=== PATIENT | male | born 1970 | race American Indian/Alaskan Native ===

== ENCOUNTER 2017-02-21 00:37 | Inpatient (IN) | payer MEDICAID ==
[2017-02-21 00:38] VITALS: BMI 30.2
[2017-02-21 00:42] VITALS: O2SAT 96
--- NOTE | 2017-02-21 00:54 | ED PDOC ---
Psych Transfer Clearance - Clearance Statement Clearance Statement: Reviewed vital signs, lab results and transfer papers. Patient clinically stable for psychiatric admission.
[2017-02-21] MEDS ORDERED: DiphenhydrAMINE 50 mg/ml Inj IM PRN (02:09)
[2017-02-21] MEDS ORDERED: Magnesium Hydroxide Susp 30 ml UD PO PRN (02:09)
[2017-02-21] MEDS ORDERED: Alum-Mag Hydrox-Simethicone Susp (30 mL) PO PRN (02:09)
[2017-02-21] MEDS: Insulin Lispro (humaLOG) 100 Units/ml Inj SC SCH ×4 (08:21→22:14)
[2017-02-21] MEDS: Albuterol-Ipratrop 3 mg / 0.5 (3 ml) UD IH SCH ×5 (08:28→22:12)
[2017-02-21 08:45] LABS: THYROID STIMULATING HORMONE 1.07 mIU/ML (0.46-4.68)
[2017-02-21] MEDS: Pantoprazole 40 mg EC Tab PO SCH (08:58)
--- NOTE | 2017-02-21 10:42 | CP.PCM.CON ---
History of Present Illness - History of Present Illness History of Present Illness: Hospitalist Consult H&P (Patient was seen and examined at 10:15 AM 02/21/17 320- 2 with Psychiatry Nurse) 47 year old male who was transferred from [facility] to [facility] In-Patient Psychiatry Unit for further treatment of depression, auditory hallucinations, and Suicide Ideation. Currently upon FULL ROS there is NO chest pain, NO palpitations, NO SOB/Cough/ Wheezing,NO dysphagia/odynophagia, NO abdominal pain, NO n/v/d/c, NO black/ bloody stools, NO burning/pain with urination, NO lightheadedness/dizziness, NO paresthesias, NO edema, NO new changes in vision/eye pain, NO new changes in hearing/ear pain PMHx: Acute Respiratory Failure (Jul 2016), COPD, DM 2, HTN, Polysubstance Abuse , Suicide Attempt via Overdose (Jul 2016), Schizoaffective Disorder Depressive Type PSHx: Denies ALL: Denies Meds: Please see list Social Hx: Homeless, (+) Heroin, (+) Tobacco 1 pack/day, (+) Alcohol 1 pint vodka daily Physical Exam: HEENT: NCA, EOMI, PERRLA, NO pharyngeal erythema/exudate, NO thyromegaly, NO cervical/supraclavicular/submandibular lymphadenopathy, Oral Mucosa and Nasal Turbinates are dry Cardio: NS1 and NS2, NO M/R/G Resp: CTA B/L, NO R/R/W GI: BSx4, Soft, NT,ND, NO HSM, NO guarding/rebound tenderness Ext: Pulses are strong and equal, NO edema, Capillary Refill is 2 seconds Neuro: CN II through XII are grossly intact Assessment and Plan: 1). Hx DM 2 Metformin 1,000 mg PO 2x/day Lispro ISS with Accuchecks 2). Hx HTN Norvasc 10 mg PO 1x/day 3). Hyperlipidemia Total Cholesterol 228, Triglycerides 186, HDL 45, and LDL 163 Considering the DM 2 and that the LDL goal for a diabetic should be 100, Atorvastatin 10 mg PO QHS has been ordered 4). COPD Duoneb Q6H PRN SOB Advair 250/50 mcg PO INH Q12H Upon discharge a cheaper alternative would be Breo Ellipta 100/25 mcg PO INH 1x/ day 5). Shizoaffective Disorder Depressive Type Treatment as per Psychiatry 6). Polysubstance Abuse Treatment as per Psychiatry 7). Suicide Ideation Treatment as per Psychiatry Gerry Humphrey D.O. Past Patient History - Past Medical History & Family History Past Medical History?: Yes - Past Social History Smoking Status: Heavy Smoker > 10 Cigarettes Daily - CARDIAC Hx Hypertension: Yes - PULMONARY Hx Chronic Obstructive Pulmonary Disease (COPD): Yes - NEUROLOGICAL HX Cerebrovascular Accident: No Hx Seizures: No - HEENT Hx HEENT Problems: No Other/Comment: uses glasses - RENAL Hx Chronic Kidney Disease: No - ENDOCRINE/METABOLIC Hx Endocrine Disorders: Yes Hx Diabetes Mellitus Type 2: Yes - HEMATOLOGICAL/ONCOLOGICAL Hx Cancer: No Hx Human Immunodeficiency Virus (HIV): No Other/Comment: requested HIV test during adm interview - INTEGUMENTARY Hx Dermatological Problems: No - MUSCULOSKELETAL/RHEUMATOLOGICAL Hx Musculoskeletal Disorders: Yes Hx Arthritis: Yes Hx Falls: No - GASTROINTESTINAL Hx Gastrointestinal Disorders: No - GENITOURINARY/GYNECOLOGICAL Hx Sexually Transmitted Disorders: No - PSYCHIATRIC Hx Depression: Yes Hx Schizophrenia: Yes Hx Substance Use: Yes (last used heroin 2yrs ago) - SURGICAL HISTORY Hx Surgeries: No - ANESTHESIA Hx Anesthesia: No Meds Allergies/Adverse Reactions: Allergies Allergy/AdvReac Type Severity Reaction Status Date / Time No Known Allergies Allergy Verified 02/20/17 11:31 - Medications Medications: Current Medications Acetaminophen (Tylenol 325mg Tab) 650 mg PO Q4 PRN PRN Reason: Pain, moderate (4-7) Al Hydrox/Mg Hydrox/Simethicone (Maalox Plus 30 Ml) 30 ml PO Q4 PRN PRN Reason: Dyspepsia Albuterol/Ipratropium (Duoneb 3 Mg/0.5 Mg (3 Ml) Ud) 3 ml IH QID [facility] Last Admin: 02/21/17 08:28 Dose: Not Given Amlodipine Besylate (Norvasc) 10 mg PO DAILY [facility] Last Admin: 02/21/17 09:01 Dose: 10 mg Clonidine HCl (Catapres) 0.2 mg PO BID [facility] Last Admin: 02/21/17 08:58 Dose: 0.2 mg Diphenhydramine HCl (Benadryl) 50 mg IM Q6 PRN PRN Reason: Extrapyramidal S/S Unable PO Diphenhydramine HCl (Benadryl) 50 mg PO Q6 PRN PRN Reason: Extrapyramidal Symptoms Diphenhydramine HCl (Benadryl) 50 mg PO HS PRN PRN Reason: Sleep Haloperidol (Haldol) 5 mg PO Q4 PRN PRN Reason: Agitation Haloperidol Lactate (Haldol) 5 mg IM Q4 PRN PRN Reason: Agitation, Unable to Take PO Insulin Human Lispro (Humalog) 0 units SC ACHS [facility] PRN Reason: Protocol Last Admin: 02/21/17 08:21 Dose: 2 u Lorazepam (Ativan) 2 mg IM Q4 PRN PRN Reason: Anxiety/Agitation,Unable PO Lorazepam (Ativan) 2 mg PO Q4 PRN PRN Reason: Anxiety/Agitation Magnesium Hydroxide (Milk Of Magnesia) 30 ml PO HS PRN PRN Reason: Constipation Metformin HCl (Glucophage) 1,000 mg PO BID [facility] Last Admin: 02/21/17 08:58 Dose: 1,000 mg Nicotine (Nicoderm Cq) 1 patch TD DAILY [facility] Last Admin: 02/21/17 08:59 Dose: Not Given Pantoprazole Sodium (Protonix Ec Tab) 40 mg PO DAILY [facility] Last Admin: 02/21/17 08:58 Dose: 40 mg Quetiapine Fumarate (Seroquel) 100 mg PO [facility] Quetiapine Fumarate (Seroquel) 100 mg PO DAILY [facility] Last Admin: 02/21/17 09:00 Dose: 100 mg Results - Vital Signs Recent Vital Signs: Last Vital Signs Temp 97.2 F L 02/21/17 01:30 Pulse 80 02/21/17 09:01 Resp 20 02/21/17 01:56 BP 130/90 02/21/17 09:01 Pulse Ox 96 02/21/17 00:39 - Labs Labs: Laboratory Results - last 24 hr 02/21/17 06:15 Triglycerides 186 H Cholesterol 228 H LDL Cholesterol Direct 163 H HDL Cholesterol 45 Thyroxine (T4) 6.00 TSH 3rd Generation 1.07
[2017-02-21] MEDS ORDERED: METHADONE PO ONE (10:51)
--- NOTE | 2017-02-21 11:55 | PCM.PSYCH ---
Initial Psychiatric Evaluation - Initial Psychiatric Evaluation Type of Admission: Voluntary Legal Status: Capacity Chief Complaint (in patient's own words): i need my methadone Patient's Reaction to Hospitalization: irritable History of Present Illness and Precipitating Events: 47 yo male with history of opioid dependence and schizoaffective disorder. he attends a methadone clinic in [facility]. this is the second time since july showing up in [place]/ seeking hospitalization. he reported to staff at [facility] that he wanted to walk infront of traffic or a bus or a train to kill himself. he reported non-adherence with medications. he stated voices were bothering him. today he is focused on receiving the methadone he brought with him from his clinic. he is irritable and demanding. he reports he will be fine once he gets his methadone. he denies any thoughts to harm self now. Current Medications: Active Medications Generic Name Dose Route Start Last Admin Trade Name Freq PRN Reason Stop Dose Admin Acetaminophen 650 mg 02/21/17 02:09 Tylenol 325mg Tab PO Q4 PRN Pain, moderate (4-7) Al Hydrox/Mg Hydrox/Simethicone 30 ml 02/21/17 02:09 Maalox Plus 30 Ml PO Q4 PRN Dyspepsia Albuterol/Ipratropium 3 ml 02/21/17 09:00 02/21/17 08:28 Duoneb 3 Mg/0.5 Mg (3 Ml) Ud IH Not Given QID [facility]I Amlodipine Besylate 10 mg 02/21/17 09:00 02/21/17 09:01 Norvasc PO 10 mg DAILY EDI Administration Atorvastatin Calcium 10 mg 02/21/17 22:00 Lipitor PO HS EDI Clonidine HCl 0.2 mg 02/21/17 09:00 02/21/17 08:58 Catapres PO 0.2 mg BID EDI Administration Diphenhydramine HCl 50 mg 02/21/17 02:09 Benadryl IM Q6 PRN Extrapyramidal S/S Unable PO Diphenhydramine HCl 50 mg 02/21/17 02:09 Benadryl PO Q6 PRN Extrapyramidal Symptoms Diphenhydramine HCl 50 mg 02/21/17 02:11 Benadryl PO HS PRN Sleep Haloperidol 5 mg 02/21/17 02:09 Haldol PO Q4 PRN Agitation Haloperidol Lactate 5 mg 02/21/17 02:09 Haldol IM Q4 PRN Agitation, Unable to Take PO Insulin Human Lispro 0 units 02/21/17 07:30 02/21/17 08:21 Humalog SC 2 u ACHS EDI Administration Protocol Lorazepam 2 mg 02/21/17 02:09 Ativan IM Q4 PRN Anxiety/Agitation,Unable PO Lorazepam 2 mg 02/21/17 02:09 Ativan PO Q4 PRN Anxiety/Agitation Magnesium Hydroxide 30 ml 02/21/17 02:09 Milk Of Magnesia PO HS PRN Constipation Metformin HCl 1,000 mg 02/21/17 09:00 02/21/17 08:58 Glucophage PO 1,000 mg BID EDI Administration Nicotine 1 patch 02/21/17 09:00 02/21/17 08:59 Nicoderm Cq TD Not Given DAILY EDI Pantoprazole Sodium 40 mg 02/21/17 09:00 02/21/17 08:58 Protonix Ec Tab PO 40 mg DAILY EDI Administration Quetiapine Fumarate 100 mg 02/21/17 22:00 Seroquel PO HS EDI Quetiapine Fumarate 100 mg 02/21/17 09:00 02/21/17 09:00 Seroquel PO 100 mg DAILY EDI Administration Fluticasone/Salmeterol 1 puff 02/21/17 21:00 Advair Diskus 250/50 IH Q12 EDI Past Psychiatric History - Past Psychiatric History Previous Treatment History: Inpatient Prior Professional Help: seen in [facility], was hospitalized her in jul 2016 History of Abuse: denies History of ETOH/Drug Use: states he has been using benzos, history of heroin dependence on methadone. History of Family Illness: denies Pertinent Medical Hx (Current Medical&Sleep Prob, Allergies): Allergies Allergy/AdvReac Type Severity Reaction Status Date / Time No Known Allergies Allergy Verified 02/20/17 11:31 Methadone 100 mg PO DAILY 07/16/16 Albuterol/Ipratropium [Duoneb 3 mg/0.5 mg (3 ml) UD] 3 ml IH QID 07/18/16 Folic Acid 1 mg PO DAILY 07/18/16 Insulin Lispro [humALOG] See Protocol SQ ACHS 07/18/16 Metformin HCl [Glucophage] 1,000 mg PO BID 07/18/16 Pantoprazole Sodium [Protonix] 40 mg PO DAILY 07/18/16 Prednisone [Deltasone] 40 mg PO DAILY 07/18/16 Thiamine [Vitamin B1 Tab] 100 mg PO DAILY 07/18/16 amLODIPine [Norvasc] 10 mg PO DAILY 07/18/16 cloNIDine [Catapres] 0.2 mg PO BID 07/18/16 levoFLOXacin 500 mg in D5W [Levaquin 500MG] 500 mg IVPB DAILY 07/18/16 Benztropine [Cogentin] 0.5 mg PO BID #60 tab 07/21/16 Citalopram [celeXA] 10 mg PO HS #30 tab 07/21/16 Haloperidol [Haldol] 5 mg PO BID #60 tab 07/21/16 levoFLOXacin [Levaquin] 500 mg PO DAILY #0 tab 07/21/16 Review of Systems - Psychiatric Psychiatric: As Per [facility] Mental Status Examination - Personal Presentation Personal Presentation: Looks stated age - Affect Affect: Blunted - Motor Activity Motor Activity: Calm - Reliability in Providing Information Reliability in Providing Information: Poor, due to altered mood (irritable) - Speech Speech: Other (brief answers, angry tone) - Mood Mood: Depressed - Formal Thought Process Formal Thought Process: Hallucinations (was reporting hallucinations prior to admission) - Hallucinations/Delusions Hallucinations: Auditory - Obsessions/Compulsions Obsessions: No Compulsions: No - Cognitive Functions Orientation: Person, Place, Situation, Time Sensorium: Alert Attention/Concentration: Attentive Abstract Thinking: [place] Estimate of Intelligence: Average Judgement: Intact, as evidence by: Insight regarding need for hospitalization Memory: Recent intact, as evidence by: Ability to recall events of the day, Remote intact, as evidenced by: Abilit to recall sig. life events - Risk Risk: Suicidal (at this time denies any thoughts of harming self. ), Withdrawal - Strength & Assets Inventory Strength & Assets Inventory: Intelligence - Limitations Limitations: Other (housing) DSM 5 DX - DSM 5 DSM 5 Diagnosis: schizoaffective disorder polysubstance abuse with opioid dependence on replacement - Recommended/Plan of Treatment Treatment Recommendations and Plan of Treatment: admit to [facility] for safety and observation gather collateral information provide supportive therapy adjust medications- restart previous meds hospitalist consult disposition planning Projected ELOS: 3 days Prognosis: fair - Smoking Cessation Smoking Cessation Initiated: Yes
--- NOTE | 2017-02-21 14:56 | CARD ---
APPROVED REPORT EKG Measurement Heart [id number] [place] [id number] <Conclusion> Normal sinus rhythm Early repolarization Normal ECG
[2017-02-21] MEDS: Fluticasone-Salmeterol 250-50mcg Diskus IH SCH (21:13)
[2017-02-22] MEDS: Insulin Lispro (humaLOG) 100 Units/ml Inj SC SCH ×4 (08:39→21:32)
[2017-02-22] MEDS: Fluticasone-Salmeterol 250-50mcg Diskus IH SCH ×2 (10:51→21:47)
[2017-02-22] MEDS: Pantoprazole 40 mg EC Tab PO SCH (10:52)
[2017-02-22] MEDS: Albuterol-Ipratrop 3 mg / 0.5 (3 ml) UD IH SCH ×3 (10:57→17:25)
--- NOTE | 2017-02-22 12:01 | PCM.PYCHPN ---
Psychiatric Progress Note - Psychiatric Progress Note Patient seen today, length of contact: in treatment team Patient Chief Complaint: i feel depressed Problems Identified/Issues Discussed: pt states he hears voices and feels depressed. states he has suicidal thoughts, but feels safe in the hospital. states he is thinking to go back to a rehab program in [place]. Medical Problems: diabetes, seen by hospitalist Medication Change: No Medical Record Reviewed: Yes Mental Status Examination - Cognitive Function Orientation: Person, Place, Situation, Time Memory: Intact Attention: WNL Concentration: WNL Association: [facility] Fund of Knowledge: [facility] Decription of patient's judgement and insights: fair - Mood Mood: Depressed - Affect Affect: Blunted - Formal Thought Process Formal Thought Process: Hallucinations (reports he still hears voices) - Suicidal Ideation Suicidal Ideation: Yes Plan: denies plan and feels safe in hospital - Homicidal Ideation Homicidal Ideation: No Goal/Treatment Plan - Goal/Treatment Plan Need for Continued Stay: Remain at risks for inpatient hospitalization, Discharge may exacerbated symptoms Progress Toward Problem(s) and Goals/Treatment Plan: schizoaffective disorder opioid dependence continue current treatment t/c endocrinology consult will titrate up seroquel tomorrow pt's methadone has been confirmed by his clinic and will be restarted Estimated Date of D/C: 02/26/17
[2017-02-23] MEDS: Albuterol-Ipratrop 3 mg / 0.5 (3 ml) UD IH SCH ×5 (06:15→21:32)
[2017-02-23] MEDS: Insulin Lispro (humaLOG) 100 Units/ml Inj SC SCH ×4 (06:32→21:31)
[2017-02-23] MEDS: Pantoprazole 40 mg EC Tab PO SCH (09:13)
[2017-02-23] MEDS: Fluticasone-Salmeterol 250-50mcg Diskus IH SCH ×2 (09:14→21:34)
--- NOTE | 2017-02-23 13:12 | PCM.PYCHPN ---
Psychiatric Progress Note - Psychiatric Progress Note Patient seen today, length of contact: in treatment team Patient Chief Complaint: i m getting back there doc Problems Identified/Issues Discussed: pt more visible in the mile[place]. he is socializing with peers. states voices are decreased and tolerable. he denies any withdrawal symptoms. much more alert and active Medical Problems: diabetes, seen by hospitalist Medication Change: No Medical Record Reviewed: Yes Mental Status Examination - Cognitive Function Orientation: Person, Place, Situation, Time Memory: Intact Attention: WNL Concentration: WNL Association: WN Fund of Knowledge: [facility] Decription of patient's judgement and insights: fair - Mood Mood: Depressed - Affect Affect: Blunted - Formal Thought Process Formal Thought Process: Hallucinations (reports voices are improved) - Suicidal Ideation Suicidal Ideation: No Plan: denies any suicidal thoughts today - Homicidal Ideation Homicidal Ideation: No Goal/Treatment Plan - Goal/Treatment Plan Need for Continued Stay: Remain at risks for inpatient hospitalization, Discharge may exacerbated symptoms Progress Toward Problem(s) and Goals/Treatment Plan: schizoaffective disorder opioid dependence continue current treatment pt feels seroquel is at the dose he would like currently. pt's methadone has been confirmed by his clinic disposition planning Estimated Date of D/C: 02/26/17
[2017-02-24] MEDS: Albuterol-Ipratrop 3 mg / 0.5 (3 ml) UD IH SCH ×4 (08:34→21:34)
[2017-02-24] MEDS: Insulin Lispro (humaLOG) 100 Units/ml Inj SC SCH ×4 (08:45→21:35)
[2017-02-24] MEDS: Fluticasone-Salmeterol 250-50mcg Diskus IH SCH ×2 (08:50→21:34)
[2017-02-24] MEDS: Pantoprazole 40 mg EC Tab PO SCH (08:52)
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
[2017-02-25] MEDS: Insulin Lispro (humaLOG) 100 Units/ml Inj SC SCH ×4 (08:37→22:00)
[2017-02-25] MEDS: Pantoprazole 40 mg EC Tab PO SCH (08:41)
[2017-02-25] MEDS: Albuterol-Ipratrop 3 mg / 0.5 (3 ml) UD IH SCH ×4 (08:58→21:36)
[2017-02-25] MEDS: Fluticasone-Salmeterol 250-50mcg Diskus IH SCH ×2 (08:58→21:36)
--- NOTE | 2017-02-25 11:49 | PCM.PYCHPN ---
Psychiatric Progress Note - Psychiatric Progress Note Patient seen today, length of contact: discussed with team Patient Chief Complaint: i am getting there doc Problems Identified/Issues Discussed: pt still pacing the halls. states the voices are better today. now more future oriented and agreeing to discharge wednesday and asking for his program to be notified so he won't have a lapse in his methadone. Medical Problems: diabetes, seen by hospitalist Medication Change: No ( ) Medical Record Reviewed: Yes Mental Status Examination - Cognitive Function Orientation: Person, Place, Situation, Time Memory: Intact Attention: WNL Concentration: WNL Association: WNL Fund of Knowledge: [facility] Decription of patient's judgement and insights: fair - Mood Mood: Anxious - Affect Affect: Blunted - Speech Speech: Appropriate - Formal Thought Process Formal Thought Process: Hallucinations (improved today), Paranoia, Loosening of associations Psychotic Thoughts and Behaviors: internally preoccupied - Suicidal Ideation Suicidal Ideation: No - Homicidal Ideation Homicidal Ideation: No Goal/Treatment Plan - Goal/Treatment Plan Need for Continued Stay: Remain at risks for inpatient hospitalization, Discharge may exacerbated symptoms Progress Toward Problem(s) and Goals/Treatment Plan: schizoaffective disorder opioid dependence continue current treatment will continue seroquel pt's methadone has been confirmed by his clinic disposition planning- discharge wednesday team to contact methadone clinic to inform of discharge Estimated Date of D/C: 02/26/17
[2017-02-26] MEDS: Albuterol-Ipratrop 3 mg / 0.5 (3 ml) UD IH SCH ×4 (08:30→21:03)
[2017-02-26] MEDS: Pantoprazole 40 mg EC Tab PO SCH (09:33)
[2017-02-26] MEDS: Insulin Lispro (humaLOG) 100 Units/ml Inj SC SCH ×5 (09:46→21:02)
[2017-02-26] MEDS: Fluticasone-Salmeterol 250-50mcg Diskus IH SCH ×2 (09:52→21:03)
--- NOTE | 2017-02-26 14:24 | PCM.PYCHPN ---
Psychiatric Progress Note - Psychiatric Progress Note Patient seen today, length of contact: discussed with team Patient Chief Complaint: i am getting better Problems Identified/Issues Discussed: pt reports his symptoms are improved and more tolerable. good sleep. denies medication side effects. he is anticipating discharge wednesday. Medical Problems: diabetes, seen by hospitalist Medication Change: No ( ) Medical Record Reviewed: Yes Mental Status Examination - Cognitive Function Orientation: Person, Place, Situation, Time Memory: Intact Attention: WNL Concentration: WNL Association: WNL Fund of Knowledge: WN Decription of patient's judgement and insights: fair - Mood Mood: Anxious - Affect Affect: Blunted - Speech Speech: Appropriate - Formal Thought Process Formal Thought Process: Hallucinations (improving), Paranoia, Loosening of associations Psychotic Thoughts and Behaviors: internally preoccupied - Suicidal Ideation Suicidal Ideation: No - Homicidal Ideation Homicidal Ideation: No Goal/Treatment Plan - Goal/Treatment Plan Need for Continued Stay: Remain at risks for inpatient hospitalization, Discharge may exacerbated symptoms Progress Toward Problem(s) and Goals/Treatment Plan: schizoaffective disorder opioid dependence continue current treatment will continue seroquel disposition planning- discharge wednesday team to contact methadone clinic to inform of discharge Estimated Date of D/C: 02/26/17
[2017-02-27] MEDS: Albuterol-Ipratrop 3 mg / 0.5 (3 ml) UD IH SCH ×5 (08:00→21:31)
[2017-02-27] MEDS: Pantoprazole 40 mg EC Tab PO SCH (09:36)
[2017-02-27] MEDS: Insulin Lispro (humaLOG) 100 Units/ml Inj SC SCH ×4 (09:37→21:22)
[2017-02-27] MEDS: Fluticasone-Salmeterol 250-50mcg Diskus IH SCH ×2 (09:39→21:19)
[2017-02-28] MEDS: Albuterol-Ipratrop 3 mg / 0.5 (3 ml) UD IH SCH ×5 (07:43→20:59)
[2017-02-28] MEDS: Insulin Lispro (humaLOG) 100 Units/ml Inj SC SCH ×4 (07:59→21:57)
[2017-02-28] MEDS: Fluticasone-Salmeterol 250-50mcg Diskus IH SCH ×2 (08:58→21:52)
[2017-02-28] MEDS: Pantoprazole 40 mg EC Tab PO SCH (09:00)
--- NOTE | 2017-02-28 11:02 | PCM.PYCHPN ---
Psychiatric Progress Note - Psychiatric Progress Note Patient seen today, length of contact: late note for [id number] discussed with team 35min spent Patient Chief Complaint: changes in thought anxiety feeling over whelmed Problems Identified/Issues Discussed: changes mood, feeling anxious, feeling overwhelmed Medical Problems: per chart Diagnostic Results: anxiety, irritability Medication Change: No ( ) Medical Record Reviewed: Yes Mental Status Examination - Cognitive Function Orientation: Person, Place, Situation, Time Memory: Intact Attention: WNL Concentration: WNL Association: WNL Fund of Knowledge: WN Decription of patient's judgement and insights: impaired - Mood Mood: Anxious - Affect Affect: Blunted - Speech Speech: Appropriate - Formal Thought Process Formal Thought Process: Hallucinations (improving), Paranoia, Loosening of associations - Suicidal Ideation Suicidal Ideation: No - Homicidal Ideation Homicidal Ideation: No Goal/Treatment Plan - Goal/Treatment Plan Need for Continued Stay: Remain at risks for inpatient hospitalization, Discharge may exacerbated symptoms Progress Toward Problem(s) and Goals/Treatment Plan: inpt milieu adjust med per status social science teacher working for discharge plan maintenance discharge planning in progress Estimated Date of D/C: 03/01/17 - Smoking Cessation Smoking Cessation Initiated: No Reason for not providing: deferred
[2017-02-28 16:34] VITALS: RESP 20
[2017-03-01] MEDS: Insulin Lispro (humaLOG) 100 Units/ml Inj SC SCH (08:25)
[2017-03-01] MEDS: Fluticasone-Salmeterol 250-50mcg Diskus IH SCH (08:53)
[2017-03-01] MEDS: Albuterol-Ipratrop 3 mg / 0.5 (3 ml) UD IH SCH (08:53)
[2017-03-01] MEDS: Pantoprazole 40 mg EC Tab PO SCH (08:55)
[2017-03-01 09:00] VITALS: BP 121/77; PULSE 92
[2017-03-01 10:37] VITALS: TEMP 98.1
--- NOTE | 2017-03-01 11:41 | PCM.PYCHDC ---
Mental Status Examination - Mental Status Examination Orientation: Person, Place, Situation, Time Memory: Intact Mood: Neutral Affect: Broad Speech: Appropriate Attention: WNL Concentration: WNL Association: WNL Fund of Knowledge: WNL Formal Thought Process: No Impairment Description of patient's judgement and insight: fair Psychotic Thoughts and Behaviors: internally preoccupied Suicidal Ideation: No Current Homicidal Ideation?: No Plan: denies suicidal or homicidal thoughts/plans of intent Discharge Summary - Discharge Note Reason for Hospitalization: pt reported auditory hallucinations and suicidal thoughts. non-adherent with psychiatric medications. Psychiatric History (includes Medical, Family, Personal Hx): history of opiod depdendence on methadone and schizoaffective disorder Consultations:: List each consultation separately and include: 1. Reason for request. 2. Findings. 3. Follow-up Consultations: seen by the hospitalist Summary of Hospital Course include:: 1. Description of specific treatment plan utilized for patients during their course of treatmen. 2. Summarize the time- course for resolution of acute symptoms and/or regressed behaviors. 3. Describe issues identified and worked on during hospitalization. 4. Describe medication utilized. 5. Describe medical problems identified and treated. 6. Reassessment of suicide risk Summary of Hospital Course: 47 yo male with history of opioid dependence and schizoaffective disorder. he attends a methadone clinic in [facility]. this is the second time since july of pt showing up in [place]/ seeking hospitalization. he reported to staff at [facility] that he wanted to walk infront of traffic or a bus or a train to kill himself. he reported non-adherence with medications. he stated voices were bothering him. today he is focused on receiving the methadone he brought with him from his clinic. he is irritable and demanding. he reports he will be fine once he gets his methadone. he denies any thoughts to harm self now. hospital course: pt was admitted to [facility] and oriented to the unit. pt was placed on routine safety protocols. pt was started on his outpatient medications including methadone once dose was confirmed with clinic. he was adherent to treatment here. his psychotic symptoms improved. he had an hiv test done at his request which was negative. he was denying any suicidal or homicidal thoughts at the time of discharge. - Final Diagnosis (DSM 5) Condition upon Discharge: GOOD DSM 5: schizoaffective disorder, bipolar type opioid dependence on methdone replacement Disposition: HOME/ ROUTINE Follow-up Treatment Plan: follow up with aftercare as directed take medications as prescribed do not use alcohol, tobacco or other illicit substances call 911 if any suicidal or homicidal thoughts Prescriptions/Medication Reconciliation: amLODIPine [Norvasc] 10 mg PO DAILY #30 Atorvastatin [Lipitor] 10 mg PO HS #30 tab cloNIDine [Catapres] 0.2 mg PO BID #60 Fluticasone/Salmeterol 250/50 [Advair Diskus 250/50] 1 puff IH Q12 30 Days Metformin HCl [Glucophage] 1,000 mg PO BID #60 Nicotine 14 mg/24 hr [Nicoderm CQ] 1 patch TD DAILY #30 patch Pantoprazole Sodium [Protonix] 40 mg PO DAILY #30 QUEtiapine [Seroquel] 100 mg PO DAILY #15 tab QUEtiapine [SEROquel] 150 mg PO HS #45 tab - Smoking Cessation Smoking Cessation Medication prescribed: Yes - Antipsychotic Medications Pt discharged on 2 or more routine antipsychotic medications: No
== END 2017-03-01 12:19 | disposition home or self-care (01) | DRG 430 ==
LOC: H.ER 00:37 → H.PSYCH 00:53
PROVIDERS: ADMIT Psychiatry & Neurology Psychiatry; ATTEND Psychiatry & Neurology Psychiatry
PROC: GZHZZZZ Group Psychotherapy (ICD-10-PCS; principal; 2017-02-21)
PROC: GZ56ZZZ Individual Psychotherapy, Supportive (ICD-10-PCS; 2017-02-21)
DX: F25.0 Schizoaffective disorder, bipolar type (principal); F11.20 Opioid dependence, uncomplicated; R45.851 Suicidal ideations; J44.9 Chronic obstructive pulmonary disease, unspecified; I10 Essential (primary) hypertension; E11.9 Type 2 diabetes mellitus without complications; E78.5 Hyperlipidemia, unspecified; Z59.0 Homelessness; Z91.14 Patient's other noncompliance with medication regimen; F10.10 Alcohol abuse, uncomplicated; Y90.9 Presence of alcohol in blood, level not specified; F17.210 Nicotine dependence, cigarettes, uncomplicated

== ENCOUNTER 2017-04-28 14:27 | Inpatient (IN) | payer MEDICAID, OTHER ==
[2017-04-28 14:27] VITALS: BMI 30.2
--- NOTE | 2017-04-28 14:52 | ED PDOC ---
HPI: Psych/Substance Abuse Time Seen by Provider: 04/28/17 14:50 Chief Complaint (Nursing): Psychiatric Evaluation Chief Complaint (Provider): crisis eval History Per: Patient History/Exam Limitations: no limitations Current Symptoms Are (Timing): Still Present Additional Complaint(s): The patient is a 47 y/o male with a past medical history of schizo affective disorder who presents to the ED for evaluation due to suicidal ideation. Patient reports his plan is to either overdose on medications or jump in front of a train. He also reports that he is currently non-domiciled. Patient denies any etoh or drug use. He offers no acute medical complaints. Patient admits to being non-compliant with his psych meds. PCP: None provided Past Medical History Reviewed: Historical Data, Nursing Documentation, Vital Signs Vital Signs: Last Vital Signs Temp 98.4 F 04/28/17 14:36 Pulse 112 H 04/28/17 14:36 Resp 20 04/28/17 14:36 BP 150/89 04/28/17 14:36 Pulse Ox 96 04/28/17 14:36 - Medical History PMH: Anxiety, Arthritis, Asthma, COPD, Depression, Hepatitis, HIV, HTN, Hyperlipidemia, Schizophrenia, Seizures - Surgical History Surgical History: No Surg Hx - Family History Family History: States: No Known Family Hx - Living Arrangements Living Arrangements: Other (non-domiciled) - Social History Current smoker - smoking cessation education provided: Yes Alcohol: None Drugs: Denies - Immunization History Hx Pneumococcal Vaccination: No - Home Medications Home Medications: Ambulatory Orders Medication Instructions Recorded Methadone 100 mg PO DAILY 07/16/16 Albuterol/Ipratropium [Duoneb 3 3 ml IH QID 07/18/16 mg/0.5 mg (3 ml) UD] Atorvastatin [Lipitor] 10 mg PO HS #30 tab 03/01/17 Fluticasone/Salmeterol 250/50 1 puff IH Q12 30 Days 03/01/17 [Advair Diskus 250/50] Metformin HCl [Glucophage] 1,000 mg PO BID #60 03/01/17 Nicotine 14 mg/24 hr [Nicoderm CQ] 1 patch TD DAILY #30 patch 03/01/17 Pantoprazole Sodium [Protonix] 40 mg PO DAILY #30 03/01/17 QUEtiapine [SEROquel] 150 mg PO HS #45 tab 03/01/17 QUEtiapine [Seroquel] 100 mg PO DAILY #15 tab 03/01/17 amLODIPine [Norvasc] 10 mg PO DAILY #30 03/01/17 cloNIDine [Catapres] 0.2 mg PO BID #60 03/01/17 Benztropine [Cogentin] 1 mg PO HS PRN #30 tab 03/22/17 Sertraline [Zoloft] 100 mg PO DAILY #30 tab 03/22/17 fluPHENAZine [Prolixin] 10 mg PO HS #30 tab 03/22/17 traZODone [Desyrel] 50 mg PO HS PRN #30 tab 03/22/17 - Allergies Allergies/Adverse Reactions: Allergies Allergy/AdvReac Type Severity Reaction Status Date / Time No Known Allergies Allergy Verified 03/13/17 10:16 Review of Systems ROS Statement: Except As Marked, All Systems Reviewed And Found Negative Constitutional: Negative for: Fever Cardiovascular: Negative for: Chest Pain Gastrointestinal: Negative for: Nausea, Vomiting Psych: Positive for: Suicidal ideation Physical Exam - Reviewed Nursing Documentation Reviewed: Yes Vital Signs Reviewed: Yes - Physical Exam Appears: Positive for: Well, Non-toxic, No Acute Distress Head Exam: Positive for: ATRAUMATIC, NORMAL INSPECTION, NORMOCEPHALIC Skin: Positive for: Normal Color. Negative for: Rash Eye Exam: Positive for: Normal appearance Neck: Positive for: Normal, Supple Cardiovascular/Chest: Positive for: Regular Rate, Rhythm Respiratory: Positive for: Normal Breath Sounds. Negative for: Respiratory Distress Extremity: Positive for: Normal ROM Neurologic/Psych: Positive for: Alert, Oriented, Mood/Affect (anxious, pacing). Negative for: Motor/Sensory Deficits - Laboratory Results Result Diagrams: 04/28/17 15:15 04/28/17 15:15 - ECG Interpretation Of ECG: NSR 97 bpm, prolonged QTc 490 ms. Reviewed by PA and ED attending. Repeat EKG shows normal QT. O2 Sat by Pulse Oximetry: 96 (RA) Pulse Ox Interpretation: Normal - Other Rad CXR X-Ray: Interpreted by Me, Viewed By Me X-Ray Interpretation: no acute finding Medical Decision Making Medical Decision Making: Time: 1450 Impression: 47 year old male with suicidal ideation Plan: -- Labs -- Chest X-Ray -- Urinalysis --EKG --Crisis consult --1:1 bedside observation 2:30 pm: Glucose is 304, 4 mg subcutaneous insulin ordered. Patient has known history of diabetes and is noncompliant with medications. 4:00 pm As per crisis counselor and psychiatrist honey grader and blender, Dr. Campos, patient does meet criteria for admission. Patient agrees to sign himself in. 5:30 pm: repeat glucose is 317, patient just ate. EKG shows prolonged QT. Case was d/w Dr. Bucio. Will repeat EKG in 1 hour. 6:30 pm: Repeat EKG demonstrates normal QT. 7:20 pm: BP elevated, patient is noncompliant with hypertension meds, he was medicated with 0.1 mg clonidine and 25 mg hydrochlorothiazide. Glucose is 301, 1000 mg PO metformin given. 9:00 pm: glucose is 310, BP 150/100. Patient was given additional 0.1 mg PO clonidine and 4 units of SC insulin. Case was d/w medicine honey grader and blender, Dr. Kwan who will admit patient medically. Patient was admitted to Telemetry. Scribe Attestation: Documented by Carolina Paul acting as a scribe for VALENCIA Anderson Provider Attestation: All medical record entries made by the Scribe were at my direction and personally dictated by me. I have reviewed the chart and agree that the record accurately reflects my personal performance of the history, physical exam, medical decision making, and the department course for this patient. I have also personally directed, reviewed, and agree with the discharge instructions and disposition. Disposition - Clinical Impression Clinical Impression: Uncontrolled hypertension, Hyperglycemia, Schizophrenia - Patient ED Disposition Is Patient to be Admitted: Yes - Disposition Disposition Time: 21:08 Condition: FAIR - Pt Status Changed To: Hospital Disposition Of: Observation Results - Lab Results Lab Results: 04/28/17 04/28/17 04/28/17 15:15 15:15 15:15 WBC 9.7 RBC 5.17 Hgb 15.0 D Hct 43.6 MCV 84.3 D MCH 29.1 MCHC 34.5 RDW 14.7 H Plt Count 282 D MPV 9.5 Neut % (Auto) 58.6 Lymph % (Auto) 34.6 Mcmullen % (Auto) 5.8 Eos % (Auto) 0.4 Baso % (Auto) 0.6 Neut # 5.7 Lymph # 3.4 Mcmullen # 0.6 Eos # 0.0 Baso # 0.1 Sodium Potassium Chloride Carbon Dioxide Anion Gap BUN Creatinine Est GFR ( Amer) Est GFR (Non-Af Amer) Random Glucose Calcium Total Bilirubin AST ALT Alkaline Phosphatase Total Protein Albumin Globulin Albumin/Globulin Ratio Urine Color Yellow Urine Clarity Clear Urine pH 6.0 Ur Specific [place] 1.028 Urine Protein 30 Urine Glucose (UA) >=500 Urine Ketones Negative Urine Blood Negative Urine Nitrate Negative Urine Bilirubin Negative Urine Urobilinogen 0.2-1.0 Ur Leukocyte Esterase Neg Urine RBC (Auto) 1 Urine Microscopic WBC 2 Ur Squamous Epith Cells < 1 Urine Opiates Screen Negative Urine Methadone Screen Positive H Ur Barbiturates Screen Negative Ur Phencyclidine Scrn Negative Ur Amphetamines Screen Negative U Benzodiazepines Scrn Positive H U Oth Cocaine Metabols Negative U Cannabinoids Screen Negative Alcohol, Quantitative 04/28/17 15:15 WBC RBC Hgb Hct MCV MCH MCHC RDW Plt Count MPV Neut % (Auto) Lymph % (Auto) Mcmullen % (Auto) Eos % (Auto) Baso % (Auto) Neut # Lymph # Mcmullen # Eos # Baso # Sodium 137 Potassium 3.9 Chloride 97 L Carbon Dioxide 27 Anion Gap 17 BUN 14 Creatinine 0.8 Est GFR ( Amer) > 60 Est GFR (Non-Af Amer) > 60 Random Glucose 308 H Calcium 9.8 Total Bilirubin 0.3 AST 68 H D ALT 74 H D Alkaline Phosphatase 131 H D Total Protein 8.5 H Albumin 4.9 Globulin 3.6 Albumin/Globulin Ratio 1.3 Urine Color Urine Clarity Urine pH Ur Specific [place] Urine Protein Urine Glucose (UA) Urine Ketones Urine Blood Urine Nitrate Urine Bilirubin Urine Urobilinogen Ur Leukocyte Esterase Urine RBC (Auto) Urine Microscopic WBC Ur Squamous Epith Cells Urine Opiates Screen Urine Methadone Screen Ur Barbiturates Screen Ur Phencyclidine Scrn Ur Amphetamines Screen U Benzodiazepines Scrn U Oth Cocaine Metabols U Cannabinoids Screen Alcohol, Quantitative < 10
[2017-04-28] MEDS ORDERED: Insulin Regular 100 units/ml SC STA ×2 (15:09→21:02)
[2017-04-28 15:26] LABS: BASO # 0.1 K/uL (0.0-0.2); BASO % 0.6 % (0.0-2.0); EOS % 0.4 % (0.0-4.0); HEMATOCRIT 43.6 % (35.0-51.0); LYMPH # 3.4 K/uL (1.0-4.3); LYMPH % 34.6 % (20.0-40.0); MEAN CORPUSCULAR HEMOGLOBIN 29.1 pg (27.0-31.0); MEAN CORPUSCULAR HGB CONC 34.5 g/dL (33.0-37.0); MEAN PLATELET VOLUME 9.5 fl (7.2-11.7); MONO # 0.6 K/uL (0.0-0.8); MONO % 5.8 % (0.0-10.0); NEUT # 5.7 K/uL (1.8-7.0); NEUT % 58.6 % (50.0-75.0); NRBC % 0.2 % (0.0-0.0); RED CELL DISTRIBUTION WIDTH 14.7 % (11.5-14.5); WHITE BLOOD COUNT 9.7 K/uL (4.8-10.8)
[2017-04-28 15:30] LABS: RBC URINE 1 /hpf (0-3); URINE BILIRUBIN NEGATIVE (NEGATIVE); URINE BLOOD NEGATIVE (NEGATIVE); URINE COLOR YELLOW (YELLOW); URINE GLUCOSE (UA) >=500 mg/dL (Normal); URINE KETONE NEGATIVE (NEGATIVE); URINE LEUKOCYTE ESTERASE NEG Leu/uL (Negative); URINE PROTEIN 30 mg/dL (NEGATIVE); URINE UROBILINOGEN 0.2-1.0 mg/dL (0.2-1.0); WBC URINE 2 /hpf (0-5)
[2017-04-28 15:31] LABS: MEAN CELL VOLUME 84.3 fl (80.0-94.0)
[2017-04-28 15:40] LABS: ALB/GLOB RATIO 1.3 (1.0-2.1); ALCOHOL SERUM < 10 mg/dl (0-10); ALKALINE PHOSPHATASE 131 U/L (38-126); ALT/SGPT 74 U/L (21-72); AST/SGOT 68 U/L (17-59); BILIRUBIN,TOTAL 0.3 mg/dl (0.2-1.3); BLOOD UREA NITROGEN 14 mg/dl (9-20); CALCIUM 9.8 mg/dL (8.4-10.2); CARBON DIOXIDE 27 mmol/L (22-30); CHLORIDE 97 mmol/L (98-107); GFR AFRICAN-AMERICAN > 60; GLUCOSE,RANDOM 308 mg/dL (75-110); POTASSIUM 3.9 MMOL/L (3.6-5.0); SODIUM 137 mmol/l (132-148); TOTAL PROTEIN 8.5 G/DL (6.3-8.2)
--- NOTE | 2017-04-28 17:20 | RAD ---
HISTORY: clearance COMPARISON: 07/15/2016. FINDINGS: LUNGS: The lungs are well inflated and clear. PLEURA: No significant pleural effusion identified, no pneumothorax apparent. CARDIOVASCULAR: Normal. OSSEOUS STRUCTURES: No significant abnormalities. VISUALIZED UPPER ABDOMEN: Normal. OTHER FINDINGS: None. IMPRESSION: No active pulmonary disease.
--- NOTE | 2017-04-29 08:02 | CARD ---
APPROVED REPORT EKG Measurement Heart [id number] HI [id number] [id number] <Conclusion> Normal sinus rhythm Prolonged QT Abnormal ECG
--- NOTE | 2017-04-29 09:36 | CP.PCM.CON ---
History of Present Illness - History of Present Illness History of Present Illness: Psychiatry consult called for evaluation of suicidal ideation/depression CC: "I'm suicidal" HPI: 47 yo male w/ h/o cocaine abuse, heroin abuse (on methadone), benzodiazepine abuse (admits to using street purchased Xanax 2 days ago), schizoaffective disorder, multiple past psychiatric hospitalizations, not compliant with treatment or medications following discharge. Patient is currently reporting vague suicidal ideations, but will not state any specific plan. Patient gives vague information about his past psychiatric history. He does not recall any medications and will not state when he was last hospitalized. When asked about the medications that we have on record for him, he states that he does not remember. When asked about auditory hallucinations he stated "not now" and was vague about when he last heard any. NO HI. NO VH. NO delusions/paranoia. History obtained from the chart as the patient is intentionally vague with the telegraphic typewriter installer. Embossing Machine Tender informed that patient that he is unlikely to get better if he continues to abuse substances and is non-compliant with medications. PPHx: As per chart, his last hospitalization was 03/13/17-03/22/17 at [facility] and 07/18/16-07/21/16 at [facility]. He also recently had an intake for the [facility] but he did not follow through. Patient has had hospitalization(s) since March, but was vague about giving information. Reports that he attempted suicide 20 years ago, denies recent attempts. PMHx: COPD, DM 2, HTN, Polysubstance Abuse, Schizoaffective Disorder Depressive Type SHx: Patient stated he has been charged with misdemeanors and has h/o incarceration. He reported that he has been charged with Public Intoxication, [place] handling, Wandering.etc. Finished 8th grade. Homeless. Was vague about current substance abuse, does admit to ETOH and Xanax abuse. +on methadone. ALL: NKDA MSE: A + O x 3, patient evasive and vague, pacing at times, fair eye contact, speech normal, thought process-linear/coherent, thought content- no delusions, no hallucinations, reports vague suicidal ideation without plan or intent, no HI. I/J unclear as the patient seems to be manipulative with the telegraphic typewriter installer. Impression: 47 yo male w/ h/o cocaine abuse, heroin abuse (on methadone), benzodiazepine abuse (admits to using street purchased Xanax 2 days ago), etoh abuse, schizoaffective disorder, multiple past psychiatric hospitalizations, not compliant with treatment or medications following discharge. Patient is vague and evasive on interview making vague suicidal threats w/o plan or intent. Embossing Machine Tender has high suspicion that patient is malingering to seek hospitalization for the secondary gain of housing. He visits several hospitals in [place] and [place] seeking inpatient psychiatric admissions. He is non-compliant with treatments and does not know what medications are helpful for him since he does not take them or follow-up with treatment. Patient's primary issue seems to be substance abuse. He is also vague about which substances he currently uses. -Would not recommend inpatient psychiatric hospitalization at this time due to high suspicion that patient is malingering -Can start Prolixin 5 mg PO HS, which as per records, patient has taken in the past -Recommend continued psychoeducation, outpatient psychiatric treatment and Narcotics anonymous -Would continue 1:1 for safety -Will continue to follow-up with him while he is medically admitted Past Patient History - Past Medical History & Family History Past Medical History?: Yes - Past Social History Smoking Status: Current Some Days Smoker - CARDIAC Hx Cardiac Disorders: Yes Hx Hypertension: Yes - PULMONARY Hx Respiratory Disorders: Yes Hx Asthma: Yes Hx Chronic Obstructive Pulmonary Disease (COPD): No - NEUROLOGICAL Hx Neurological Disorder: Yes Hx Seizures: No - HEENT Hx HEENT Problems: Yes Other/Comment: uses corrective glasses - RENAL Hx Chronic Kidney Disease: No - ENDOCRINE/METABOLIC Hx Endocrine Disorders: Yes Hx Diabetes Mellitus Type 2: Yes - HEMATOLOGICAL/ONCOLOGICAL Hx Blood Disorders: Yes Hx Human Immunodeficiency Virus (HIV): No - INTEGUMENTARY Hx Dermatological Problems: No - MUSCULOSKELETAL/RHEUMATOLOGICAL Hx Arthritis: No Hx Falls: No - GASTROINTESTINAL Hx Gastrointestinal Disorders: No - GENITOURINARY/GYNECOLOGICAL Hx Sexually Transmitted Disorders: No - PSYCHIATRIC Hx Psychophysiologic Disorder: Yes Hx Depression: Yes Hx Schizophrenia: Yes Hx Substance Use: No - SURGICAL HISTORY Hx Surgeries: No - ANESTHESIA Hx Anesthesia: No Hx Anesthesia Reactions: No Hx Malignant Hyperthermia: No Has any member of the family had a problem w/ anesthesia?: No Meds Allergies/Adverse Reactions: Allergies Allergy/AdvReac Type Severity Reaction Status Date / Time No Known Allergies Allergy Verified 03/13/17 10:16 Results - Vital Signs Recent Vital Signs: Last Vital Signs Temp 97.6 F 04/29/17 04:00 Pulse 83 04/29/17 04:00 Resp 13 04/29/17 04:00 BP 124/75 04/29/17 04:00 Pulse Ox 96 04/28/17 22:09 - Labs Result Diagrams: 04/28/17 15:15 04/28/17 15:15 Labs: Laboratory Results - last 24 hr 04/28/17 04/28/17 04/29/17 18:42 20:56 01:00 POC Glucose (mg/dL) 279 H 310 H 279 H 04/29/17 05:09 POC Glucose (mg/dL) 284 H
[2017-04-29] MEDS ORDERED: Dextrose 50% SYRINGE Inj (50 ml) IVP PRN (11:22)
[2017-04-29] MEDS ORDERED: Dextrose 50% SYRINGE Inj (50 ml) IV PRN (11:22)
[2017-04-29] MEDS ORDERED: Glucagon Recombinant 1 mg Inj IM PRN ×2 (11:22)
[2017-04-29] MEDS: Insulin Regular 100 units/ml SC SCH ×3 (12:00→22:56)
--- NOTE | 2017-04-29 13:46 | CP.PCM.PCO ---
Assessment & Plan - Assessment and Plan (Free Text) Assessment: Methadone Dose verified with [id number] ( [facility]) spoke with DENIS Lora at [phone] pt. is on Methadone 100 mg po daily- last dose was 04/28 at 11 am
--- NOTE | 2017-04-29 16:01 | CP.PCM.HP ---
History of Present Illness - History of Present Illness History of Present Illness: CC: Crisis evaluation. 47 y/o M came to ER [facility], [place], to be evaluated for Suicidal ideation with plan on DOA with no improvement. Last crisis was admitted to [facility] from 03/13/17 to 03/22/17. Pt appear in the ER c/o of continue suicidal ideation associated to visual and hearing hallucinations, he mentioned hearing voices telling him to kill himself. Worsening symptoms: Pt thinking to overdose or to jump in front of a train. Aggravating factor: Pt homeless with Hx of Drug abuse, Tx in [place], [place], with Methadone 100 mg, Non in compliance with medications for a month. As per sister this episode recurred every time when he doesn't follows the psychiatric Tx. Denied: Fever, chills, n/v/d, abdominal pain, CP, syncope, SOB. PMHx: Schizophrenia, Hallucinations since 15 yrs old, AMS, Depression, HTN, DMII with hyperglycemia, COPD with admissions for acute respiratory failure, O/A , Hx Substance abuse: Cocaine and Heroin. EKG showed: Normal sinus rhythm. CXR: No active pulmonary disease. Present on Admission - Present on Admission Any Indicators Present on Admission: Yes History of Uncontrolled Diabetes: Yes Review of Systems - EENT Eyes: Requires Corrective Lenses Ears: Other (negative) Nose/Mouth/Throat: Other (negative) - Cardiovascular Cardiovascular: Other (egative) - Respiratory Respiratory: Other (negative) - Gastrointestinal Gastrointestinal: Other (negative) - Genitourinary Genitourinary: Other (negative) - Musculoskeletal Musculoskeletal: Other (negative) - Integumentary Integumentary: Other (negative) - Neurological Neurological: Confusion - Psychiatric Psychiatric: Auditory Hallucinations, Depression, Suicidal Ideation, Visual Hallucinations, Tactile Hallucinations - Endocrine Endocrine: Other (negative) - Hematologic/Lymphatic Hematologic: Other (negative) Past Patient History - Past Medical History & Family History Past Medical History?: Yes Pertinent Family History: Unknown - Past Social History Smoking Status: Heavy Smoker > 10 Cigarettes Daily Alcohol: Occasional Drugs: Other (Hx of Cocaine, Heroin.) Home Situation {Lives}: Homeless - CARDIAC Hx Cardiac Disorders: Yes Hx Hypertension: Yes - PULMONARY Hx Respiratory Disorders: Yes Hx Asthma: Yes Hx Chronic Obstructive Pulmonary Disease (COPD): No - NEUROLOGICAL Hx Neurological Disorder: Yes Hx Seizures: No - HEENT Hx HEENT Problems: Yes Other/Comment: uses corrective glasses - RENAL Hx Chronic Kidney Disease: No - ENDOCRINE/METABOLIC Hx Endocrine Disorders: Yes Hx Diabetes Mellitus Type 2: Yes - HEMATOLOGICAL/ONCOLOGICAL Hx Blood Disorders: No Hx Human Immunodeficiency Virus (HIV): No - INTEGUMENTARY Hx Dermatological Problems: No - MUSCULOSKELETAL/RHEUMATOLOGICAL Hx Musculoskeletal Disorders: No Hx Arthritis: No Hx Falls: No - GASTROINTESTINAL Hx Gastrointestinal Disorders: No - GENITOURINARY/GYNECOLOGICAL Hx Genitourinary Disorders: No Hx Sexually Transmitted Disorders: No - PSYCHIATRIC Hx Psychophysiologic Disorder: Yes Hx Depression: Yes Hx Panic Symptoms: Yes Hx Schizophrenia: Yes Hx Substance Use: No - SURGICAL HISTORY Hx Surgeries: No - ANESTHESIA Hx Anesthesia: No Hx Anesthesia Reactions: No Hx Malignant Hyperthermia: No Has any member of the family had a problem w/ anesthesia?: No Meds Allergies/Adverse Reactions: Allergies Allergy/AdvReac Type Severity Reaction Status Date / Time No Known Allergies Allergy Verified 03/13/17 10:16 Physical Exam - Constitutional Appears: Confused - Head Exam Head Exam: NORMAL INSPECTION - Eye Exam Eye Exam: PERRL - ENT Exam ENT Exam: Normal Exam - Neck Exam Neck exam: Positive for: Normal Inspection - Respiratory Exam Respiratory Exam: NORMAL BREATHING PATTERN - Cardiovascular Exam Cardiovascular Exam: REGULAR RHYTHM - GI/Abdominal Exam GI & Abdominal Exam: Normal Bowel Sounds, Soft - Extremities Exam Extremities exam: Positive for: normal inspection - Back Exam Back exam: NORMAL INSPECTION - Neurological Exam Additional comments: Oriented x2, slow mentation, no focal motor sensory deficit, follows commands. - Psychiatric Exam Psychiatric exam: Depressed, Suicidal Ideation - Skin Skin Exam: Warm Results - Vital Signs Recent Vital Signs: Last Vital Signs Temp 98.5 F 04/29/17 15:54 Pulse 88 04/29/17 15:54 Resp 19 04/29/17 15:54 BP 139/100 H 04/29/17 09:00 Pulse Ox 99 04/29/17 09:00 reviewed Sharon - Labs Result Diagrams: 04/28/17 15:15 04/28/17 15:15 Labs: Laboratory Results - last 24 hr 04/28/17 04/28/17 04/29/17 18:42 20:56 01:00 POC Glucose (mg/dL) 279 H 310 H 279 H 04/29/17 04/29/17 05:09 10:17 POC Glucose (mg/dL) 284 H 349 H reviewed J.P. - EKG Data EKG comments: reviewed J.P. - Imaging and Cardiology Chest x-ray Status: Report reviewed by me (Sharon) Assessment & Plan (1) Altered mental status Status: Acute Priority: High (2) Schizophrenia Status: Acute Priority: High (3) Depression Status: Chronic Priority: High (4) DMII (diabetes mellitus, type 2) Status: Acute (5) Hyperglycemia Status: Acute Priority: High (6) Hypertension Status: Chronic Priority: Medium - Assessment and Plan (Free Text) Plan: F/U MRSA Screening, continue [place] R, Glucophage, Methadone and rest of Tx, Psychiatric consult appreciated. ICU time: 60 minutes. - Date & Time Date: 04/29/17
[2017-04-29] MEDS ORDERED: EnalaprilAT 1.25 mg/ml Inj IV ONE (18:26)
[2017-04-30] MEDS: Insulin Regular 100 units/ml SC SCH ×2 (08:50→11:52)
--- NOTE | 2017-04-30 10:40 | CP.PCM.CON ---
History of Present Illness - History of Present Illness History of Present Illness: Psychiatry consult follow-up CC: "Just discharge me" HPI: 47 yo male w/ h/o cocaine abuse, heroin abuse (on methadone), benzodiazepine abuse (admits to using street purchased Xanax 3 days ago), schizoaffective disorder, multiple past psychiatric hospitalizations, not compliant with treatment or medications following discharge. Patient is irritable with policy writer sales and continues to give vague answers to questions. He states that he is "suicidal" but has no plan or intent. He reports that he needs medications, but will not engage in a conversation with the policy writer sales about what works best for him. He refused a list of shelters and help arranging outpatient follow-up from the policy writer sales. When asked what he will do following discharge, he was uncertain if he would go back to [place] or [place] following discharge. When asked about auditory hallucinations he stated "not now" and was vague about when he last heard any. NO HI. NO VH. NO delusions/ paranoia. PPHx: As per chart, his last hospitalization was 03/13/17-03/22/17 at [facility] and 07/18/16-07/21/16 at [facility]. He also recently had an intake for the [facility] but he did not follow through. Patient has had hospitalization(s) since March, but was vague about giving information. Reports that he attempted suicide 20 years ago, denies recent attempts. PMHx: COPD, DM 2, HTN, Polysubstance Abuse, Schizoaffective Disorder Depressive Type SHx: Patient stated he has been charged with misdemeanors and has h/o incarceration. He reported that he has been charged with Public Intoxication, [place] handling, Wandering.etc. Finished 8th grade. Homeless. Was vague about current substance abuse, does admit to ETOH and Xanax abuse. +on methadone. ALL: NKDA MSE: A + O x 3, patient evasive and vague, pacing at times, fair eye contact, speech normal, thought process-linear/coherent, thought content- no delusions, no hallucinations, reports vague suicidal ideation without plan or intent, no HI. I/J unclear as the patient seems to be manipulative with the policy writer sales. Impression: 47 yo male w/ h/o cocaine abuse, heroin abuse (on methadone), benzodiazepine abuse (admits to using street purchased Xanax 3 days ago), etoh abuse, schizoaffective disorder, multiple past psychiatric hospitalizations, not compliant with treatment or medications following discharge. Patient is vague and evasive on interview making vague suicidal threats w/o plan or intent. Vault Attendant has high suspicion that patient is malingering to seek hospitalization for the secondary gain of housing. He visits several hospitals in [place] and [place] seeking inpatient psychiatric admissions. He is non-compliant with treatments and does not know what medications are helpful for him since he does not take them or follow-up with treatment. Patient's primary issue seems to be substance abuse. He is also vague about which substances he currently uses. -Would not recommend inpatient psychiatric hospitalization at this time due to high suspicion that patient is malingering -Can continue Prolixin 5 mg PO HS if he is agreeable to taking it, he seemed ambivalent about treatment to the policy writer sales -Recommend continued psychoeducation, outpatient psychiatric treatment and Narcotics anonymous; patient currently denying all resources from policy writer sales -Discontinue 1:1 Past Patient History - Past Medical History & Family History Past Medical History?: Yes - Past Social History Smoking Status: Heavy Smoker > 10 Cigarettes Daily Alcohol: Occasional Drugs: Other (Hx of Cocaine, Heroin.) Home Situation {Lives}: Homeless - CARDIAC Hx Cardiac Disorders: Yes Hx Hypertension: Yes - PULMONARY Hx Respiratory Disorders: Yes Hx Asthma: Yes Hx Chronic Obstructive Pulmonary Disease (COPD): No - NEUROLOGICAL Hx Neurological Disorder: Yes Hx Seizures: No - HEENT Hx HEENT Problems: Yes Other/Comment: uses corrective glasses - RENAL Hx Chronic Kidney Disease: No - ENDOCRINE/METABOLIC Hx Endocrine Disorders: Yes Hx Diabetes Mellitus Type 2: Yes - HEMATOLOGICAL/ONCOLOGICAL Hx Blood Disorders: No Hx Human Immunodeficiency Virus (HIV): No - INTEGUMENTARY Hx Dermatological Problems: No - MUSCULOSKELETAL/RHEUMATOLOGICAL Hx Musculoskeletal Disorders: No Hx Arthritis: No Hx Falls: No - GASTROINTESTINAL Hx Gastrointestinal Disorders: No - GENITOURINARY/GYNECOLOGICAL Hx Genitourinary Disorders: No Hx Sexually Transmitted Disorders: No - PSYCHIATRIC Hx Psychophysiologic Disorder: Yes Hx Depression: Yes Hx Panic Symptoms: Yes Hx Schizophrenia: Yes Hx Substance Use: No - SURGICAL HISTORY Hx Surgeries: No - ANESTHESIA Hx Anesthesia: No Hx Anesthesia Reactions: No Hx Malignant Hyperthermia: No Has any member of the family had a problem w/ anesthesia?: No Meds Allergies/Adverse Reactions: Allergies Allergy/AdvReac Type Severity Reaction Status Date / Time No Known Allergies Allergy Verified 03/13/17 10:16 - Medications Medications: Current Medications Dextrose (Dextrose 50% Inj) 0 ml IVP STAT PRN; Protocol PRN Reason: Hypoglycemia Protocol Dextrose (Dextrose 50% Inj) 0 ml IV STAT PRN; Protocol PRN Reason: Hyglycemia Protocol Dextrose (Glutose 15) 0 gm PO ONCE PRN; Protocol PRN Reason: Hypoglycemia Protocol Fluphenazine HCl (Prolixin) 5 mg PO HS [facility] Last Admin: 04/29/17 22:57 Dose: 5 mg Glucagon (Glucagen Diagnostic Kit) 0 mg IM STAT PRN; Protocol PRN Reason: Hypoglycemia Protocol Glucagon (Glucagen Diagnostic Kit) 0 mg IM STAT PRN; Protocol PRN Reason: Hypoglycemia Protocol Insulin Human Regular (Humulin R) 0 units SC ACHS [facility] PRN Reason: Protocol Last Admin: 04/30/17 08:50 Dose: 3 u Metformin HCl (Glucophage) 500 mg PO BIDWM [facility] Last Admin: 04/30/17 08:49 Dose: 500 mg Methadone HCl (Methadone) 100 mg PO DAILY [facility] Last Admin: 04/30/17 08:53 Dose: 100 mg Results - Vital Signs Recent Vital Signs: Last Vital Signs Temp 98.3 F 04/30/17 08:00 Pulse 93 H 04/30/17 08:00 Resp 13 04/30/17 08:00 BP 138/88 04/30/17 08:00 Pulse Ox 100 04/30/17 08:00 - Labs Result Diagrams: 04/28/17 15:15 04/28/17 15:15 Labs: Laboratory Results - last 24 hr 04/29/17 04/29/17 04/29/17 10:17 16:47 22:31 POC Glucose (mg/dL) 349 H 303 H 241 H 04/30/17 05:29 POC Glucose (mg/dL) 288 H
[2017-04-30 12:19] VITALS: RESP 16; TEMP 99; O2SAT 99
[2017-04-30 12:24] VITALS: BP 154/93
[2017-04-30 14:26] VITALS: PULSE 89
--- NOTE | 2017-04-30 15:26 | CP.PCM.PCO ---
Assessment & Plan - Assessment and Plan (Free Text) Assessment: patient wishes to sign out AMA- discussed with Dr.Trotta Lane cleared patient for discharge AMA Above discussed with
--- NOTE | 2017-04-30 15:37 | CP.PCM.PN ---
Subjective - Date & Time of Evaluation Date of Evaluation: 04/30/17 Time of Evaluation: 10:00 - Subjective Subjective: F/U AMS. Pt walking around the room, unable to answer questions properly, appear anxious. Objective - Vital Signs/Intake and Output Vital Signs (last 24 hours): Temp Pulse Resp BP Pulse Ox 99 F 89 16 154/93 H 99 04/30/17 12:00 04/30/17 14:25 04/30/17 12:00 04/30/17 14:25 04/30/17 12:00 - Medications Medications: Current Medications Amlodipine Besylate (Norvasc) 10 mg PO DAILY [facility] Last Admin: 04/30/17 14:25 Dose: 10 mg Dextrose (Dextrose 50% Inj) 0 ml IVP STAT PRN; Protocol PRN Reason: Hypoglycemia Protocol Dextrose (Dextrose 50% Inj) 0 ml IV STAT PRN; Protocol PRN Reason: Hyglycemia Protocol Dextrose (Glutose 15) 0 gm PO ONCE PRN; Protocol PRN Reason: Hypoglycemia Protocol Fluphenazine HCl (Prolixin) 5 mg PO [facility] Last Admin: 04/29/17 22:57 Dose: 5 mg Glucagon (Glucagen Diagnostic Kit) 0 mg IM STAT PRN; Protocol PRN Reason: Hypoglycemia Protocol Glucagon (Glucagen Diagnostic Kit) 0 mg IM STAT PRN; Protocol PRN Reason: Hypoglycemia Protocol Insulin Human Regular (Humulin R) 0 units SC ACHS [facility] PRN Reason: Protocol Last Admin: 04/30/17 11:52 Dose: 5 u Metformin HCl (Glucophage) 500 mg PO BIDWM [facility] Last Admin: 04/30/17 08:49 Dose: 500 mg Methadone HCl (Methadone) 100 mg PO DAILY [facility] Last Admin: 04/30/17 08:53 Dose: 100 mg - Constitutional Appears: No Acute Distress - Head Exam Head Exam: NORMAL INSPECTION - Eye Exam Eye Exam: PERRL - ENT Exam ENT Exam: Normal Exam - Neck Exam Neck Exam: Normal Inspection - Respiratory Exam Respiratory Exam: NORMAL BREATHING PATTERN - Cardiovascular Exam Cardiovascular Exam: REGULAR RHYTHM - GI/Abdominal Exam GI & Abdominal Exam: Soft, Normal Bowel Sounds - Extremities Exam Extremities Exam: Normal Inspection - Back Exam Back Exam: NORMAL INSPECTION - Neurological Exam Neurological Exam: Alert, Awake, Oriented x3 Additional comments: unable to answer questions properly. - Psychiatric Exam Psychiatric exam: Anxious - Skin Skin Exam: Warm Assessment and Plan (1) Altered mental status Status: Acute (2) Schizophrenia Status: Acute (3) Depression Status: Chronic (4) DMII (diabetes mellitus, type 2) Status: Acute (5) Hyperglycemia Status: Acute (6) Hypertension Status: Chronic
== END 2017-04-30 15:45 | disposition left against medical advice (07) | DRG 463 ==
LOC: H.ER 14:27 → H.ERHOLD 17:33 → H.ICU/CCU 23:21
PROVIDERS: ADMIT Internal Medicine Pulmonary Disease; ATTEND Internal Medicine Pulmonary Disease
DX: R41.82 Altered mental status, unspecified (principal); E11.65 Type 2 diabetes mellitus with hyperglycemia; R45.851 Suicidal ideations; J44.9 Chronic obstructive pulmonary disease, unspecified; F20.9 Schizophrenia, unspecified; I10 Essential (primary) hypertension; E78.5 Hyperlipidemia, unspecified; Z59.0 Homelessness; J45.909 Unspecified asthma, uncomplicated; Z91.19 Patient's noncompliance with other medical treatment and regimen; Z91.14 Patient's other noncompliance with medication regimen; F17.200 Nicotine dependence, unspecified, uncomplicated; F32.9 Major depressive disorder, single episode, unspecified; M19.90 Unspecified osteoarthritis, unspecified site; Z21 Asymptomatic human immunodeficiency virus [HIV] infection status